=== PATIENT | female | born 1950 | race Caucasian/White ===

== ENCOUNTER 2016-11-13 08:54 | Emergency (ER) | payer BC, MEDICARE ==
[2016-11-13] MEDS ORDERED: PROCHLORPERAZINE 10 MG/2 ML VIAL ONE (09:41)
[2016-11-13] MEDS ORDERED: KETOROLAC 30 MG/ML VIAL ONE (09:41)
[2016-11-13] MEDS ORDERED: DIPHENHYDRAMINE 50 MG/ML VIAL ONE (09:41)
[2016-11-13] MEDS ORDERED: SODIUM CHLORIDE 0.9% 1,000 ML ONE (09:41)
== END 2016-11-13 12:08 | disposition home or self-care (01) ==
LOC: ER 08:54
CPT/HCPCS: 36415; 70450; 80053; 85025; 85610; 85730; 96361; 96374; 96375